=== PATIENT | male | born 1970 | race Caucasian/White ===

== ENCOUNTER 2017-03-25 13:48 | Emergency (ER) | payer OTHER ==
[~2017-03-25] VITALS: Ht 177.8 cm; Wt 77.3 kg
[2017-03-25] MEDS ORDERED: MOTRIN600 MG PO (14:39)
[2017-03-25] MEDS ORDERED: BACLOFEN10 MG PO (14:40)
[2017-03-25] MEDS ORDERED: OMEPRAZOLE20 M2 PO (14:41)
[2017-03-25] MEDS ORDERED: CLARITIN,ALAVAR10 MG PO (14:41)
[2017-03-25] MEDS ORDERED: SALINE NOSE SPR45 M1 BOTH NARES (14:43)
[2017-03-25] MEDS ORDERED: CYMBALTA30 MG PO (14:45)
[2017-03-25 16:08] VITALS: BP 134/80
== END 2017-03-25 16:21 ==
LOC: EME 13:48
DX: M77.12 Lateral epicondylitis, left elbow (principal); G89.29 Other chronic pain
CPT/HCPCS: 73080; 99281; 99283